=== PATIENT | female | born 1950 | race Hispanic/Latino ===

== ENCOUNTER 2017-05-19 13:17 | Outpatient (CLI) | payer MEDICARE, OTHER ==
--- NOTE | 2017-05-22 15:06 | Magnetic Resonance Report ---
MR scan of the cranium was performed with and without contrast. Pulse sequences included: 1. T1 weighted sagittal and axial images without contrast and T1 axial and coronal images with contrast 2. T2 weighted axial and coronal images 3. FLAIR axial images 4. Diffusion-weighted axial images 5. Apparent diffusion coefficient images Views of the posterior fossa showed a normal craniocervical junction. Cerebellar pontine angles were normal with normal seventh-eighth nerve complexes. Brainstem and cerebellum were normal. The ventricular system showed no dilatation or distortion. Images of the hemispheres showed occasional areas of increased signal in the periventricular white matter consistent with araiosis. Sinuses, flow voids in the [place], orbits, and basal ganglia were normal. Pituitary showed a partially empty sella. There are no abnormal areas of enhancement with contrast. Impression: Minimally abnormal MR scan of the cranium with and without contrast 1. 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 partially empty sella
== END 2017-05-19 13:18 | disposition home or self-care (01) ==
LOC: SPVIMAG 13:17
PROVIDERS: ATTEND Specialist
DX: R51 Headache (principal)
CPT/HCPCS: 70553; A9577